=== PATIENT | female | born 1950 | race Caucasian/White ===

== ENCOUNTER → 2017-01-05 | Outpatient (CLI) | payer MEDICARE ==
[~2017-01-05] VITALS: Ht 157.5 cm; Wt 80.5 kg
[~2017-01-05] MED LIST: CALCIUM WITH VI1 TA1 PO; CLARITIN 1010 MG/TAB PO; NEXIUM 20MG20 MG PO; PRILOSEC 20MG20 MG PO; WELLBUTRIN SR150 M1 PO; ZANTAC 150MG T150 MG PO; ZANTAC 300300 MG PO
[2017-01-05 08:13] VITALS: BP 174/90; PULSE 64
[2017-01-05 09:20] VITALS: BP 155/86; PULSE 62
== END ==
LOC: COL.RAD 07:56
DX: M51.36 Other intervertebral disc degeneration, lumbar region (principal)
CPT/HCPCS: J3301

== ENCOUNTER → 2017-01-19 | Outpatient (CLI) | payer MEDICARE ==
[~2017-01-19] VITALS: Ht 157.5 cm; Wt 80.0 kg
[2017-01-19 10:02] VITALS: BP 147/81; PULSE 65
[2017-01-19 10:41] VITALS: BP 161/76; PULSE 68
== END ==
LOC: COL.RAD 09:30
DX: M54.5 Low back pain (principal); M79.604 Pain in right leg; M79.605 Pain in left leg
CPT/HCPCS: J3301

== ENCOUNTER 2017-02-02 13:55 | Emergency (ER) | payer MEDICARE ==
[~2017-02-02] VITALS: Ht 157.5 cm; Wt 79.5 kg
[2017-02-02 14:00] VITALS: TEMP 98
[2017-02-02 14:52] LABS: BASO % 0.5 % (0.0-2.0); EOS # 0.3 (0.0-0.7); EOS % 3.8 % (0-4.0); GRAN # 4.5 (1.4-6.5); GRAN % 60.8 % (42.2-75.2); HEMATOCRIT 38.4 % (37.0-47.0); HEMOGLOBIN 12.5 g/dl (12.5-16.0); LYMPH # 1.8 (1.2-3.4); LYMPH % 24.6 % (20.0-51.0); MEAN CELL VOLUME 93 fl (80.0-100.0); MEAN CORPUSCULAR HEMOGLOBIN 30 pg (27.0-31.0); MEAN CORPUSCULAR HGB CONC 33 g/dl (33.0-37.0); MEAN PLATELET VOLUME 9.4 fl (7.4-10.4); MONO # 0.7 (0.1-0.6); PLATELET COUNT 262 K/mm3 (130-400); RED BLOOD COUNT 4.12 M/mm3 (4.10-5.30); WHITE BLOOD COUNT 7.4 K/mm3 (4.8-10.8)
[2017-02-02 15:02] LABS: ADJUSTED CALCIUM 9.3 mg/dL (8.4-10.2); ALANINE AMINOTRANSFERASE 24 U/L (9-52); ALKALINE PHOSPHATASE 76 U/L (50-136); ANION GAP 10 mmol/L (7-16); BILIRUBIN,TOTAL 0.5 mg/dL (0.0-1.0); BLOOD UREA NITROGEN 16 mg/dL (7-17); CALCIUM 9.3 mg/dL (8.4-10.2); CARBON DIOXIDE 22 mmol/L (22-30); CHLORIDE 111 mmol/L (98-107); CREATININE, serum 0.96 mg/dL (0.52-1.25); GLUCOSE 92 mg/dL (74-106); POTASSIUM 3.9 mmol/L (3.4-5.0); SODIUM 143 mmol/L (137-145); TOTAL PROTEIN 6.9 gm/dL (6.4-8.2)
[2017-02-02 16:18] LABS: B-TYPE NATRIURETIC PEPTIDE 99 pg/mL (0-125)
[2017-02-02 16:19] LABS: TROPONIN-I < 0.012 ng/mL (0.000-0.034)
[2017-02-02] MEDS ORDERED: AMOXICILLIN 8751 TAB PO (16:21)
[2017-02-02 16:25] VITALS: BP 146/67; PULSE 73
== END 2017-02-02 16:45 | disposition home or self-care (01) ==
LOC: COL.ER 13:55
PROVIDERS: Emergency Medicine
DX: J18.9 Pneumonia, unspecified organism (principal); K21.9 Gastro-esophageal reflux disease without esophagitis; Z98.890 Other specified postprocedural states
CPT/HCPCS: J0696; J7030

== ENCOUNTER → 2017-04-23 | Outpatient (CLI) | payer MEDICARE ==
[~2017-04-23] MED LIST changes: +AMOXICILLIN 8751 TAB PO
== END ==
LOC: MHCPAIN 11:42
DX: G89.29 Other chronic pain (principal); M47.817 Spondylosis without myelopathy or radiculopathy, lumbosacral region; M53.3 Sacrococcygeal disorders, not elsewhere classified
CPT/HCPCS: G0463

== ENCOUNTER → 2017-06-13 | Outpatient (CLI) | payer MEDICARE | LOC: MHCPAIN 12:01 | DX: G89.29 Other chronic pain (principal); M47.817 Spondylosis without myelopathy or radiculopathy, lumbosacral region; M53.3 Sacrococcygeal disorders, not elsewhere classified | CPT/HCPCS: G0463 ==

== ENCOUNTER → 2017-09-11 | Outpatient (CLI) | payer MEDICARE | LOC: MHCPAIN 10:52 | DX: G89.29 Other chronic pain (principal); M47.817 Spondylosis without myelopathy or radiculopathy, lumbosacral region; M53.3 Sacrococcygeal disorders, not elsewhere classified | CPT/HCPCS: G0463 ==

== ENCOUNTER → 2017-09-20 | Outpatient (CLI) | payer MEDICARE | LOC: MHCPAIN 08:20 | DX: M47.817 Spondylosis without myelopathy or radiculopathy, lumbosacral region (principal); M51.36 Other intervertebral disc degeneration, lumbar region; M51.37 Other intervertebral disc degeneration, lumbosacral region | CPT/HCPCS: J1040; Q9967 ==